=== PATIENT | female | born 1995 | race Caucasian/White ===

== ENCOUNTER 2020-06-18 08:58 | Emergency (ER) | payer OTHER ==
[~2020-06-18] VITALS: Ht 160 cm; Wt 110.0 kg
[2020-06-18 09:00] VITALS: BP 153/98
[2020-06-18] MEDS ORDERED: ACETAMINOPHEN 500 MG TABLET PO ONE (09:15)
--- NOTE | 2020-06-18 09:21 | PHYS DOC ---
Past History Past Medical History: No Pertinent History Adult General HPI HPI Patient is a 25-year-old female presenting for left knee pain. Reports sitting on her knees yesterday and performed a twisting motion and effort to get up when she started experiencing anteromedial knee pain. This has been constant since onset, states the pain is 9 out of 10 in severity and with twisting motions is 15/10 in severity. She is taking 800 mg ibuprofen for the pain with mild relief in symptoms. States she has known torn ACL and left knee, is pending orthopedic evaluation July 01, 2020. Patient has been ambulatory, admits pain with full extension of left lower extremity. Patient took ibuprofen yesterday evening and a coworker came by and brought crutches, she has been utilizing crutches ever since, no other medications ingested since ibuprofen yesterday evening. Denies any other concerning findings such as motor or sensory changes, no focal neuro deficits, no trauma, no visual and/or palpable abnormalities Review of Systems Review of Systems Fourteen body systems of review of systems have been reviewed. See HPI for pertinent positives and negative responses, other haider all other systems are negative, non-pertinent or non-contributory Physical Exam Physical Exam Constitutional: Well developed, well nourished, no acute distress, non-toxic appearance. Well-appearing and happy during examination HENT: Normocephalic, atraumatic, bilateral external ears normal, oropharynx moist, no oral exudates, nose normal. Eyes: PERRLA, EOMI, conjunctiva normal, no discharge. Neck: Normal range of motion, no tenderness, supple, no stridor. Cardiovascular: Heart rate regular, sinus rhythm, no murmurs rubs or gallops Lungs & Thorax: Bilateral breath sounds clear to auscultation Abdomen: Bowel sounds normal, soft, no tenderness, no masses, no pulsatile masses. Nonsurgical abdomen, no peritoneal signs Skin: Warm, dry, no erythema, no rash. Back: No tenderness, no CVA tenderness. Extremities: No tenderness, no cyanosis, no clubbing, ROM intact, no edema. Patient points to deep tenderness along medial portion of knee that is not reproducible with palpation, no isolated tenderness of the patella, no tenderness of fibular head, is able to flex knee to 90 degrees, is able to bear weight with slight limp, Circle knee rule negative Neurologic: Alert and oriented X 3, grossly normal motor & sensory function, no focal deficits noted. Psychologic: Affect normal, judgement normal, mood normal. EKG EKG [] Radiology/Procedures Radiology/Procedures [] Heart Score HEART Score for Chest Pain: HEART Score for Chest Pain Response (Comments) Value History Slighlty/Non-Suspicious 0 Age < 45 0 Risk Factors 1 or 2 Risk Factors 1 Total 1 Risk Factors: Risk Factors: DM, Current or recent (<one month) smoker, HTN, HLP, family history of CAD, obesity. Risk Scores: Risk Factors: DM, Current or recent (<one month) smoker, HTN, HLP, family history of CAD, obesity. Course & Med Decision Making Course & Med Decision Making ABCs, history and physical examination non-concerning. Patient has known torn left ACL and pending outpatient evaluation from orthopedics. Circle knee rule negative, no trauma, low concern for acute bony abnormality Of note, patient febrile with temperature oral 101.7. Otherwise asymptomatic besides knee pain. No known COVID-19 exposure, no URI-like symptoms, no other classic Covid symptoms. Patient agreed to Covid swab, results pending Patient self quarantine until results from Covid swab pend. Patient to continue supportive care practices for her left knee. She will be provided brace and personal crutches for use until orthopedic follow-up Strict return precautions discussed with good understanding by patient, all questions and concerns addressed prior to ER departure in stable condition Dragon Disclaimer Dragon Disclaimer This electronic medical record was generated, in whole or in part, using a voice recognition dictation system. Departure Departure: Impression: Primary Impression: Left knee pain Additional Impression: Fever Disposition: 01 DC HOME SELF CARE/HOMELESS Condition: STABLE Referrals: DARRELL STEELE MD (PCP) Patient Instructions: RICE - Routine Care for Injuries Additional Instructions: You were seen for knee pain. Your knee pain is most likely due to exacerbation of known torn left ACL. You should follow up with your orthopedic surgeon as previously scheduled. You can use ice, rest, and ibuprofen and/or Tylenol for symptom control. If you continue having symptoms you may need to follow up with your primary doctor to consider having an MRI or other testing if symptoms persists. Please return to the ED if you have new or worsening symptoms that present prior to outpatient follow-up. In addition, you were found to be febrile today and otherwise asymptomatic which is concerning for potential COVID-19 infection given ongoing pandemic. Your physical exam was reassuring. Your physical exam was reassuring. We tested you for COVID-19 but this test does not come back for 1 to 2 days. In the meantime you need to quarantine yourself at home away from all other individuals, especially those who are elderly or have any other chronic health issues or an immunocompromised status. You should return to the ED if you develop worsening cough, shortness of breath, chest pain, or any other new or concerning symptoms. Alternate Tylenol and ibuprofen as needed for body aches and pain. If your test does come back positive you need to quarantine yourself for 10 days until symptom-free. You should make sure to drink plenty of fluids and get plenty of rest. Problem Qualifiers IAN CARR DO Jun 18, 2020 09:21
== END 2020-06-18 09:45 | disposition home or self-care (01) ==
LOC: ER 08:58
DX: M25.562 Pain in left knee (principal); R50.9 Fever, unspecified; Z20.828 Contact with and (suspected) exposure to other viral communicable diseases
CPT/HCPCS: 99283; C9803; U0003

== ENCOUNTER → 2020-06-20 | Outpatient (CLI) | payer OTHER ==
[2020-06-18 09:00] VITALS: BP 153/98
--- NOTE | 2020-06-20 10:11 | RAD ---
XR KNEE _3 VIEWS_LT 06/20/2020 9:48 AM INDICATION: Left knee pain COMPARISON: None available. TECHNIQUE: 3 views of left knee are provided. FINDINGS/ IMPRESSION: 1. A small knee joint effusion. There is no acute fracture or dislocation. Joint spaces are maintaine d. Bone mineralization is within normal limits. Regional soft tissues are within normal limits. There is no soft tissue gas or osseous erosion. No radiopaque foreign body. Electronically signed by: Marisela Wheeler MD (06/20/2020 10:09 AM) ANNITA
== END ==
LOC: DXRAD 09:38
PROVIDERS: ATTEND Physician Assistant
DX: M25.462 Effusion, left knee (principal)
CPT/HCPCS: 73562

== ENCOUNTER → 2020-09-26 | Outpatient (CLI) | payer OTHER ==
--- NOTE | 2020-09-26 08:42 | RAD ---
EXAM: Abdomen sonogram. HISTORY: Elevated liver enzyme laboratory values. TECHNIQUE: Sonographic imaging of the abdomen was performed. COMPARISON: None. FINDINGS: The liver is normal in size. No focal hepatic lesion is seen. The common bile duct is vineet l in caliber. The gallbladder is unremarkable. The right kidney and inferior vena cava are unremarkab le. The pancreas is obscured due to bowel gas. IMPRESSION: No acute sonographic finding. Electronically signed by: Alley Veloz MD (09/26/2020 8:40 AM) [id number]
== END ==
LOC: US 07:47
PROVIDERS: ATTEND Obstetrics & Gynecology
DX: R94.5 Abnormal results of liver function studies (principal)
CPT/HCPCS: 76705